=== PATIENT | female | born 1970 | race Caucasian/White ===

== ENCOUNTER → 2016-03-13 | Outpatient (CLI) | payer BC | LOC: MC.RAD 14:00 | DX: Z12.31 Encounter for screening mammogram for malignant neoplasm of breast (principal) ==

== ENCOUNTER 2017-01-22 08:45 | Outpatient (RCR) | payer BC | END 2017-03-20 11:55 | disposition home or self-care (01) | LOC: WSC 08:45 | DX: M67.912 Unspecified disorder of synovium and tendon, left shoulder (principal) ==

== ENCOUNTER → 2017-03-18 | Outpatient (CLI) | payer OTHER | LOC: COL.RAD 09:00 | DX: D35.2 Benign neoplasm of pituitary gland (principal) | CPT/HCPCS: A9585 ==

== ENCOUNTER 2019-05-07 11:00 | Outpatient (RCR) | payer OTHER | END 2019-07-11 | disposition home or self-care (01) | LOC: WSPT | DX: M54.6 Pain in thoracic spine (principal) ==

== ENCOUNTER → 2023-10-22 | Outpatient (CLI) | payer OTHER | LOC: MC.RAD 14:06 | DX: Z12.31 Encounter for screening mammogram for malignant neoplasm of breast (principal) ==